=== PATIENT | female | born 1960 | race Caucasian/White ===

== ENCOUNTER 2018-02-05 14:30 | Outpatient (REF) | payer MEDICARE, MEDICAID, SELFPAY ==
--- NOTE | 2018-02-05 14:00 | PAPFT_PTH ---
PATIENT: STANLEY SENA LOC: [facility] U#:[id number] AGE/SX: 57/F ROOM: RE02/05/[address]: CHAOP Kim : 1960 BED: DIS: 02/05/2018 SPEC #: [id number] RECD: 02/05/18 18:27 STATUS: SANTIAGO REYusuf #: [id number] BRENNA: 02/05/18 14:[address]: Shasta Morales DEPT: [facility] Cytology RECD BY: Isa Recinos ENTERED: 02/05/18 18:27 SP TYPE: PAPFT JOSE DR: Merary Luna Tissues: 1 - CX/ENDOCX FOR PAP SMEARS Procedures: PAP THIN PREP/UVM Screening HPV DNA PROBE Comments: [id number]
== END 2018-02-05 14:50 ==
LOC: LBN 14:30
PROVIDERS: PCP Family Medicine; Visit Provider Nurse Practitioner Family
DX: Z12.4 Encounter for screening for malignant neoplasm of cervix (principal); Z11.51 Encounter for screening for human papillomavirus (HPV)
CPT/HCPCS: 88142; 87624

== ENCOUNTER 2018-11-22 15:57 | Outpatient (REF) | payer MEDICARE, MEDICAID, SELFPAY ==
[2018-11-22 21:27] LABS: FREE T4 0.49 ng/dL (0.76-1.46); TSH 0.47 uIU/mL (0.358-3.74)
[2018-11-23 16:34] LABS: T3,Free 5.1 pg/ml (2.8-5.3)
== END 2018-11-22 16:17 ==
LOC: NCHCN 15:57
PROVIDERS: PCP Family Medicine; Visit Provider Family Medicine
DX: E03.9 Hypothyroidism, unspecified (principal)
CPT/HCPCS: 84439; 84443; 84481

== ENCOUNTER 2018-12-05 15:20 | Outpatient (REF) | payer MEDICARE, MEDICAID, SELFPAY ==
[2018-12-05 22:13] LABS: Abs Immature Grans 0.01 k/cumm (0.0-0.09); Absolute Basophil Count 0.03 k/cumm (0.0-0.2); Absolute Eosinophil Count 0.07 k/cumm (0.0-0.7); Absolute Monocyte Count 0.64 k/cumm (0.11-0.7); Absolute Neutrophil Count 5.36 k/cumm (1.2-6.7); Basophils % 0.3; Eosinophils % 0.8; HCT 44.7 % (36.0-46.0); HGB 15.6 g/dL (12.0-15.5); Immature Grans % 0.1; Mean Corp. HGB Concentration 34.9 g/dL (32.0-36.0); Mean Corpuscular Hemoglobin 32.5 pg (27.0-33.0); Mean Corpuscular Volume 93.1 fL (80-95); Mean Platelet Volume 12.8 fL (8.0-11.0); Monocytes % 7.4; Neutrophils % 62.4; Platelet Count 177 x1000/uL (130-400); White Blood Cell Count 8.61 k/cumm (4.4-10.8)
[2018-12-05 22:24] LABS: ALT 37 U/L (12-78); AST 19 U/L (15-37); Albumin 4.2 g/dL (3.4-5.0); Alkaline Phosphatase 94 U/L (46-116); Anion Gap 9.9 mmol/L (3-11); BUN 19 mg/dL (7-18); Bilirubin, Total 0.6 mg/dL (0.2-1.0); CO2 26.1 mmol/L (21.0-32.0); Calcium 9.7 mg/dL (8.5-10.1); Chloride 102 mmol/L (98-107); Glucose 91 mg/dL (70-100); Potassium 3.9 mmol/L (3.5-5.1); Sodium 138 mmol/L (136-145); Total Protein 7.4 g/dL (6.4-8.2)
== END 2018-12-05 15:40 ==
LOC: NCHCN 15:20
PROVIDERS: PCP Family Medicine; Visit Provider Nurse Practitioner Family
DX: Z13.0 Encounter for screening for diseases of the blood and blood-forming organs and certain disorders involving the immune mechanism (principal); Z13.1 Encounter for screening for diabetes mellitus
CPT/HCPCS: 80053; 85025

== ENCOUNTER 2019-01-02 11:52 | Emergency (ER) | payer MEDICARE, MEDICAID, SELFPAY ==
[2019-01-02] VITALS (30 sets, daily range): BP systolic 103–166; BP diastolic 38–94; PULSE 59–85; RESP 16–24; TEMP 36.8; O2SAT 89–98
--- NOTE | 2019-01-02 12:11 | DI.RAD_ITS ---
SYMPTOMS/DIAGNOSIS: HEART RACING, CHEST HEAVINESS, ? ACUTE DISEASE PA AND LATERAL CHEST: The heart is normal in size. The lungs are clear. The mediastinal structures and pleura appear intact. CONCLUSION: Normal chest.
--- NOTE | 2019-01-02 12:15 | ED.GENADUL_ITS ---
Discharge Plan Disposition Patient Disposition: HOME Condition: Improving Discharge Details Chief Complaint: Chest Pain Clinical Impression: Fatigue, Dizziness, Palpitations, Diarrhea Primary Care Provider: Merary Luna ED Provider: Brooke Phelps Home Meds and New Rx's Prescriptions: Continued liothyronine 25 MCG tablet 25 mcg PO DAILY RF: 0 clonazepam 2 MG tablet,disintegrating 1 mg PO BID RF: 0 No Action Atorvastatin Calcium 20 MG tablet 20 mg PO DAILY RF: 0 anastrozole [Arimidex] 1 mg Tablet 1 mg PO DAILY RF: 0 nicotine 14 mg/24 hr Patch 24 Hour 1 patch TRANSDERMAL DAILY RF: 0 citalopram [Celexa] 40 mg Tablet 40 mg PO DAILY RF: 0 psyllium Packet 1 packet PO DAILY RF: 0 amitriptyline 50 mg Tablet 50 mg PO HS RF: 0 folic acid 1 mg Tablet 1 mg PO DAILY RF: 0 Vitamin D3 4,000 unit Capsule 4,000 unit PO DAILY RF: 0 Discharge Instructions Instructions: Palpitations (ED), Acute Diarrhea (ED), Dizziness (ED) Additional Instructions: Drink plenty of fluids and get plenty of rest. Return the Holter monitor to the hospital as directed. Call your primary care doctor tomorrow to schedule a follow-up appointment for reevaluation. Return immediately to the emergency department if you develop any worsening or new concerning symptoms. Discharge Data Discharge Date/Time-TO BE ENTERED AT DEPARTURE: 01/02/19 16:22 Discharge Physician: Brooke Phelps Medical Decision Making 58-year-old female with a history of anxiety, depression, breast and cervical cancer, irritable bowel syndrome, PTSD who presents with fatigue, sensation of tachycardia, intermittent chest heaviness, dizziness and shortness of breath over the past 10 days worse over the past few days and diarrhea for the past 3 days. Called her PCP and was advised to come to the ER for blood work and EKG. Normal heart rate at 68. She is afebrile. She appears nontoxic. O2 sat 93% on room air but she is a smoker. She appears anxious and tearful. No focal deficits on exam. Differential diagnosis includes ACS, PE, anxiety, dehydration, pneumonia, UTI, electrolyte abnormality. Will place an IV, bolus IV fluids, screening labs, chest x-ray and urinalysis and will give a dose of Ativan. 1430 --labs and imaging reviewed and unremarkable. Normal white blood cell count, negative d-dimer, negative troponin, negative lipase. Urinalysis notes 5-10 WBCs but negative bacteria, negative nitrite. Urine culture sent. Chest x-ray negative. Patient states she feels much better. Denies any acute symptoms at this time. Heart score 2. We will plan for repeat troponin and EKG. 1520 --Second troponin negative and repeat ekg unchanged. Pt denies any acute complaints and is requesting to go home. She was sent home with holter monitor. She was advised to follow-up with her primary care doctor for results of this. She was advised to return here with any worsening or new concerning symptoms. Medical Records Medical records reviewed: Yes I reviewed the patient's medical records. Imaging Data Radiologic Study: Radiologist's impression: PA AND LATERAL CHEST: The heart is normal in size. The lungs are clear. The mediastinal structures and pleura appear intact. CONCLUSION: Normal chest. Lab Data Lab results reviewed: Yes I reviewed the patient's lab results. Lab results narrative: 01/02/19 12:22 Urine - Reflex from Ua Urine Culture - Final Gram Positive Adia,Mixed Laboratory Tests Range/Units 01/02/19 01/02/19 01/02/19 12:15 12:15 12:15 WBC (4.4-10.8) k/cumm 8.82 RBC (4.00-5.20) m/cumm 5.10 Hgb (12.0-15.5) g/dL 16.5 H Hct (36.0-46.0) % 47.6 H MCV (80-95) fL 93.3 MCH (27.0-33.0) pg 32.4 MCHC (32.0-36.0) g/dL 34.7 RDW (11.7-14.6) % 12.2 Plt Count (130-400) x1000/uL 207 MPV (8.0-11.0) fL 11.4 H Immature Gran % 0.3 Neutrophils % 60.8 Lymphocytes % 31.0 Monocytes % 6.9 Eosinophils % 0.7 Basophils % 0.3 Absolute Neutrophils (1.2-6.7) k/cumm 5.36 Absolute Lymphocytes (1.2-3.4) k/cumm 2.73 Absolute Monocytes (0.11-0.7) k/cumm 0.61 Absolute Eosinophils (0.0-0.7) k/cumm 0.06 Absolute Basophils (0.0-0.2) k/cumm 0.03 D-Dimer (<500) ng/mlFEU Sodium (136-145) mmol/L 141 Potassium (3.5-5.1) mmol/L 3.9 Chloride (98-107) mmol/L 102 Carbon Dioxide (21.0-32.0) mmol/L 27.8 Anion Gap (3-11) mmol/L 11.2 H BUN (7-18) mg/dL 9 Creatinine (0.55-1.02) mg/dL 1.00 Estimated GFR/1.73 m2 (mL/min/1.73m2) 57.35 Glucose (70-100) mg/dL 100 Calcium (8.5-10.1) mg/dL 9.6 Magnesium (1.8-2.4) mg/dL 1.9 Total Bilirubin (0.2-1.0) mg/dL 0.5 AST (15-37) U/L 20 ALT (12-78) U/L 42 Alkaline Phosphatase (46-116) U/L 111 Troponin I (0.00-0.06) ng/mL < 0.05 Total Protein (6.4-8.2) g/dL 8.2 Albumin (3.4-5.0) g/dL 4.2 Lipase (73-393) U/L 163 Urine Color (Yellow) Urine Clarity (Clear) Urine pH (5-8) Ur Specific [place] (1.005-1.025) Urine Protein (Negative) mg/dL Urine Ketones (Negative) mg/dL Urine Blood (Negative) Urine Nitrite (Negative) Urine Bilirubin (Negative) Urine Urobilinogen (Up TO 0.2) EU/dL Ur Leukocyte Esterase (Negative) Urine RBC (0-2) Urine WBC (0-5) HPF Ur Epithelial Cells (Negative) HPF Urine Crystals (Negative) HPF Urine Bacteria (Negative) HPF Urine Casts (Negative) LPF Urine Mucus (Negative) Ur Culture Indicated? Urine Glucose (Negative) mg/dL Range/Units 01/02/19 01/02/19 01/02/19 12:15 12:22 14:58 WBC (4.4-10.8) k/cumm RBC (4.00-5.20) m/cumm Hgb (12.0-15.5) g/dL Hct (36.0-46.0) % MCV (80-95) fL MCH (27.0-33.0) pg MCHC (32.0-36.0) g/dL RDW (11.7-14.6) % Plt Count (130-400) x1000/uL MPV (8.0-11.0) fL Immature Gran % Neutrophils % Lymphocytes % Monocytes % Eosinophils % Basophils % Absolute Neutrophils (1.2-6.7) k/cumm Absolute Lymphocytes (1.2-3.4) k/cumm Absolute Monocytes (0.11-0.7) k/cumm Absolute Eosinophils (0.0-0.7) k/cumm Absolute Basophils (0.0-0.2) k/cumm D-Dimer (<500) ng/mlFEU 496 Sodium (136-145) mmol/L Potassium (3.5-5.1) mmol/L Chloride (98-107) mmol/L Carbon Dioxide (21.0-32.0) mmol/L Anion Gap (3-11) mmol/L BUN (7-18) mg/dL Creatinine (0.55-1.02) mg/dL Estimated GFR/1.73 m2 (mL/min/1.73m2) Glucose (70-100) mg/dL Calcium (8.5-10.1) mg/dL Magnesium (1.8-2.4) mg/dL Total Bilirubin (0.2-1.0) mg/dL AST (15-37) U/L ALT (12-78) U/L Alkaline Phosphatase (46-116) U/L Troponin I (0.00-0.06) ng/mL < 0.05 Total Protein (6.4-8.2) g/dL Albumin (3.4-5.0) g/dL Lipase (73-393) U/L Urine Color (Yellow) Yellow Urine Clarity (Clear) Clear Urine pH (5-8) 5.5 Ur Specific [place] (1.005-1.025) <= 1.005 Urine Protein (Negative) mg/dL Negative Urine Ketones (Negative) mg/dL Negative Urine Blood (Negative) Negative Urine Nitrite (Negative) Negative Urine Bilirubin (Negative) Negative Urine Urobilinogen (Up TO 0.2) EU/dL 0.2 Ur Leukocyte Esterase (Negative) Small H Urine RBC (0-2) 0-2 Urine WBC (0-5) HPF 5-10 Ur Epithelial Cells (Negative) HPF Rare Urine Crystals (Negative) HPF Negative Urine Bacteria (Negative) HPF Negative Urine Casts (Negative) LPF Negative Urine Mucus (Negative) Negative Ur Culture Indicated? Yes Urine Glucose (Negative) mg/dL Negative ECG Data Attestation: I personally reviewed and interpreted this ECG (s) as follows: Interpretation: #1 - rate of 63, sinus, no acute ST elevation or depression, [place] 140, QTc 403, QRS 88. #2 - rate of 65, sinus, no acute ST elevation or depression, [place] 156, QTc 418, QRS 88. HPI General Mode of arrival: ambulatory . Date/Time Provider Initiated Documentation: 01/02/19 11:54 . Limitations to Documentation: no limitations . Information obtained by: patient . HPI Narrative: Patient is a 58-year-old female with a history of anxiety, depression, IBS, PTSD, breast and cervical cancer who presents with fatigue, sensation of heart racing, intermittent chest heaviness, dizziness, shortness of breath for the past 10 days, and diarrhea over the past 3 days. She called her PCP office and was advised to come here for evaluation including EKG and blood work. She states her chest heaviness is currently 5/10. She denies any radiation. She states her diarrhea has been watery and brown. She also admits to decreased appetite. She denies known fever, nausea, vomiting, urinary symptoms, headache, recent antibiotics, recent travel, recent surgery, blurry vision or unilateral weakness or numbness. Related Data Home Medications Medication Instructions Recorded Confirmed Atorvastatin Calcium 20 mg PO DAILY tab-cap 03/03/17 01/02/19 clonazepam 1 mg PO BID tab-cap 03/03/17 01/02/19 liothyronine 25 mcg PO DAILY tab-cap 03/03/17 01/02/19 amitriptyline 50 mg PO HS 01/02/19 01/02/19 anastrozole [Arimidex] 1 mg PO DAILY 01/02/19 01/02/19 cholecalciferol (vitamin D3) 4,000 unit PO DAILY 01/02/19 01/02/19 [Vitamin D3] citalopram [Celexa] 40 mg PO DAILY 01/02/19 01/02/19 folic acid 1 mg PO DAILY 01/02/19 01/02/19 nicotine 1 patch TRANSDERMAL DAILY 01/02/19 01/02/19 psyllium 1 packet PO DAILY 01/02/19 01/02/19 Allergies Allergy/AdvReac Type Severity Reaction Status Date / Time latex Allergy Severe Verified 01/02/19 12:11 bupropion HCl AdvReac Intermediate Verified 01/02/19 12:11 [From Wellbutrin] buspirone HCl [From BuSpar] AdvReac Intermediate Verified 01/02/19 12:11 gabapentin [From Neurontin] AdvReac Intermediate Verified 01/02/19 12:11 paroxetine HCl [From Paxil] AdvReac Intermediate Verified 01/02/19 12:11 sertraline HCl [From Zoloft] AdvReac Intermediate Verified 01/02/19 12:11 venlafaxine HCl AdvReac Intermediate Verified 01/02/19 12:11 [From Effexor] General Stated Complaint: Chest Pain TRAVIS: 3 Review of Systems Review of Systems All systems reviewed & are unremarkable except as noted in HPI and below Constitutional Reports as per HPI, Denies chills, Reports fatigue, Denies fever(s), Reports poor appetite and Reports weakness Eyes Denies blurry vision ENT Denies dizziness, Denies sore throat and Denies throat swelling Cardiovascular Reports chest pain and Reports dyspnea Respiratory Denies cough and Reports dyspnea Gastrointestinal Denies abdominal pain, Reports diarrhea and Denies vomiting Genitourinary Denies hematuria and Denies dysuria Musculoskeletal Denies back pain and Denies numbness Integumentary/Breasts Denies lesions and Denies rash Neurologic Denies dizziness, Denies focal weakness, Denies numbness and Reports weakness Endocrine Reports fatigue Allergic/Immunologic Denies throat swelling [facility] Medical History Anxiety and depression (Acute 03/03/17) History of right breast cancer (Acute 03/03/17) Hyperlipidemia (Acute 03/03/17) Irritable bowel syndrome (Acute 03/03/17) Moderate dysplasia of cervix (LASHON II) (Acute 03/13/17) Primary insomnia (Acute 03/03/17) PTSD (post-traumatic stress disorder) (Acute 03/03/17) Surgical History History of lumpectomy of right breast (Acute) Family History Maternal Aunt Breast cancer Sister Breast cancer Father CAD (coronary artery disease) Diabetes Mother Arthritis Social History Smoking/Tobacco Use Status: Current every day Tobacco Type: cigarettes Alcohol Intake: current Alcohol Intake frequency: a few times a month Drug use: Never Substance use type: does not use Details: Hemp oil without THC daily Seatbelt use: always Do you feel safe at home: Yes Do you feel safe in your relationship?: Yes Exam Const General: cooperative, healthy appearing, no acute distress and anxious HENMT Head: normal to inspection Face and sinus: normal facial exam Eyes General: appearance normal, both eyes and all related structures Pupils: PERRL EOM: EOM intact bilaterally Neck Neck: normal visual inspection and No submandibular swelling Lymphatic: no lymphadenopathy noted Chest Chest: normal inspection of the chest and no tenderness Resp Effort & Inspection: normal respiratory effort and able to speak in complete sentences Auscultation: clear to auscultation bilaterally Cardio Rate: regular rate Rhythm: regular rhythm GI Inspection: normal to inspection Palpation: soft, not firm, not rigid and nontender Auscultation: normal bowel sounds Skin General skin exam: no rashes or lesions noted Neuro General: alert, awake, oriented x3, gait normal, moves all extremities, no meningeal signs and no focal motor deficits Cognition: normal cognition Speech: speech normal Motor: muscle tone normal throughout and strength 5/5 throughout Sensory Exam: no sensory deficits noted Extrem General: normal to inspection, full ROM, normal capillary refill, no calf tenderness bilaterally and no edema Psych Appearance: grossly normal Mental Status: mental status grossly normal Speech and Movement: speech and movement normal Affect: normal affect Course Vital Signs Temperature 98.2 F 01/02/19 11:57 Pulse 68 01/02/19 11:57 Respiratory Rate 18 01/02/19 11:57 Blood Pressure 166/94 H 01/02/19 11:57 Pulse Oximetry 93 L 01/02/19 11:57 Temperature 98.2 F 01/02/19 11:57 Temperature Source Skin 01/02/19 11:57 Pulse 68 01/02/19 11:57 Respiratory Rate 18 01/02/19 11:57 Respiratory Effort Non-Labored 01/02/19 12:03 Respiratory Depth Normal 01/02/19 12:03 Blood Pressure 166/94 H 01/02/19 11:57 Blood Pressure Position Supine 01/02/19 11:57 Pulse Oximetry 93 L 01/02/19 11:57 Oxygen Delivery Method Room Air 01/02/19 11:57 Oxygen Flow Rate 0 01/02/19 11:57 Pain Level 5 01/02/19 11:57
[2019-01-02 12:24] LABS: Abs Immature Grans 0.03 k/cumm (0.0-0.09); Absolute Basophil Count 0.03 k/cumm (0.0-0.2); Absolute Eosinophil Count 0.06 k/cumm (0.0-0.7); Absolute Lymphocyte Count 2.73 k/cumm (1.2-3.4); Absolute Monocyte Count 0.61 k/cumm (0.11-0.7); Absolute Neutrophil Count 5.36 k/cumm (1.2-6.7); Basophils % 0.3; Eosinophils % 0.7; HCT 47.6 % (36.0-46.0); HGB 16.5 g/dL (12.0-15.5); Immature Grans % 0.3; Mean Corp. HGB Concentration 34.7 g/dL (32.0-36.0); Mean Corpuscular Hemoglobin 32.4 pg (27.0-33.0); Mean Corpuscular Volume 93.3 fL (80-95); Mean Platelet Volume 11.4 fL (8.0-11.0); Monocytes % 6.9; Neutrophils % 60.8; Platelet Count 207 x1000/uL (130-400); RBC Distribution Width 12.2 % (11.7-14.6); White Blood Cell Count 8.82 k/cumm (4.4-10.8)
[2019-01-02 12:27] LABS: Bilirubin Negative (Negative); Blood Negative (Negative); Clarity Clear (Clear); Glucose Negative (Negative); Ketones Negative (Negative); Leukocyte Esterase Small (Negative); Nitrite Negative (Negative); Specific Gravity <= 1.005 (1.005-1.025); Urobilinogen 0.2 EU/dL (Up TO 0.2); pH 5.5 (5-8)
[2019-01-02] MEDS: Normal Saline 1,000 ML 1000 ML IV (12:32)
[2019-01-02] MEDS: LORazepam 2 MG/ML VIAL 0.5 MG IVP (12:32)
[2019-01-02 12:34] LABS: Bacteria Negative HPF (Negative); C & S Indicated? Yes; Casts Negative LPF (Negative); Crystals Negative HPF (Negative); Epithelial Cells Rare HPF (Negative); Mucus Negative (Negative); RBC 0-2 (0-2)
[2019-01-02 12:37] LABS: Lipase 163 U/L (73-393)
[2019-01-02 12:43] LABS: ALT 42 U/L (12-78); AST 20 U/L (15-37); Albumin 4.2 g/dL (3.4-5.0); Alkaline Phosphatase 111 U/L (46-116); Anion Gap 11.2 mmol/L (3-11); BUN 9 mg/dL (7-18); Bilirubin, Total 0.5 mg/dL (0.2-1.0); CO2 27.8 mmol/L (21.0-32.0); Calcium 9.6 mg/dL (8.5-10.1); Chloride 102 mmol/L (98-107); Estimated GFR 57.35 (mL/min/1.73m2); Glucose 100 mg/dL (70-100); Magnesium 1.9 mg/dL (1.8-2.4); Potassium 3.9 mmol/L (3.5-5.1); Sodium 141 mmol/L (136-145); Total Protein 8.2 g/dL (6.4-8.2); Troponin I < 0.05 ng/mL (0.00-0.06)
[2019-01-02 12:59] LABS: D-Dimer 496 ng/mlFEU (<500)
[2019-01-02 15:23] LABS: Troponin I < 0.05 ng/mL (0.00-0.06)
== END 2019-01-02 16:22 | disposition home or self-care (01) ==
PROVIDERS: Emergency Provider Physician Assistant; PCP Family Medicine
DX: R00.2 Palpitations (principal); R53.83 Other fatigue; R42 Dizziness and giddiness; R19.7 Diarrhea, unspecified; F41.8 Other specified anxiety disorders
CPT/HCPCS: 36415; 80053; 83690; 93005; 96361; 96374; 99285; 71046; 81003; 81015; 83735; 84484; 85025; 85379; 87086; 93010; 93225; J2060

== ENCOUNTER 2019-01-04 11:10 | Outpatient (CLI) | payer MEDICARE, MEDICAID, SELFPAY ==
--- NOTE | 2019-01-07 11:17 | HOLTER_ITS ---
HOLTER MONITOR DATE OF DICTATION January 07, [address] 1 days, 16 hours. Baseline rhythm sinus. Rare single PAC. No SVT or atrial fibrillation. Frequent single PVC, 1163 total, 0.7% total beat. 7 couplet. No VT. Nocturnal heart rates as low as 50 Beats per minute, sinus bradycardia. SYMPTOMS: Heart racing noted once during sinus rhythm, single PAC 84 beats per minute. Average heart 68 beats per minute, range 50-121 beats per minute. Tai Leija M.D. RACHID/josé luis T - 01/07/19
== END 2019-01-04 11:30 ==
PROVIDERS: PCP Family Medicine; Visit Provider Family Medicine
DX: I49.3 Ventricular premature depolarization (principal); R00.1 Bradycardia, unspecified
CPT/HCPCS: 93226

== ENCOUNTER 2019-01-07 10:06 | Outpatient (CLI) | payer MEDICARE, MEDICAID, SELFPAY | END 2019-01-07 10:26 | PROVIDERS: PCP Family Medicine; Referring Provider Physician Assistant; Visit Provider Internal Medicine Interventional Cardiology | DX: I49.3 Ventricular premature depolarization (principal); R00.1 Bradycardia, unspecified | CPT/HCPCS: 93227 ==

== ENCOUNTER 2019-02-02 12:52 | Emergency (ER) | payer MEDICARE, MEDICAID, SELFPAY ==
[2019-02-02 12:55] VITALS: BP 124/81; PULSE 78; RESP 18; TEMP 37.3; O2SAT 98
[2019-02-02 13:14] VITALS: RESP 16
--- NOTE | 2019-02-02 13:21 | NUR.NOTE ---
pt states that her three doctors do not aggree on which meds she should be on . she denies suicidal or homocidal thoughts. Nursing Note:
--- NOTE | 2019-02-02 13:30 | ED.GENADUL_ITS ---
Discharge Plan Disposition Patient Disposition: HOME Condition: Improving Discharge Details Chief Complaint: GenMedical Clinical Impression: Anxiety, Restlessness Primary Care Provider: Merary Luna ED Provider: Brooke Phelps Home Meds and New Rx's Prescriptions: Continued Atorvastatin Calcium 20 MG tablet 20 mg PO DAILY RF: 0 liothyronine 25 MCG tablet 25 mcg PO DAILY RF: 0 clonazepam 2 MG tablet,disintegrating 0.5 mg PO BID RF: 0 anastrozole [Arimidex] 1 mg Tablet 1 mg PO DAILY RF: 0 nicotine 14 mg/24 hr Patch 24 Hour 1 patch TRANSDERMAL DAILY RF: 0 citalopram [Celexa] 40 mg Tablet 40 mg PO DAILY RF: 0 psyllium Packet 1 packet PO DAILY RF: 0 amitriptyline 50 mg Tablet 150 mg PO HS RF: 0 folic acid 1 mg Tablet 1 mg PO DAILY RF: 0 Vitamin D3 4,000 unit Capsule 4,000 unit PO DAILY RF: 0 clonidine HCl 0.1 mg Tablet 0.1 mg PO TID RF: 0 Discharge Instructions Instructions: Anxiety (ED) Additional Instructions: Continue taking your clonidine as needed and directed. You can also add Benadryl to help with feelings of restlessness and difficulty with sleep. Follow-up with your scheduled appointment with your primary care doctor on Monday. Return to the emergency department if you develop any worsening or new concerning symptoms. Discharge Data Discharge Date/Time-TO BE ENTERED AT DEPARTURE: 02/02/19 16:21 Discharge Physician: Brooke Phelps Medical Decision Making 3229 -- 58-year-old female with history of anxiety and depression, PTSD who pre sents with feelings of anxiety, restlessness and insomnia over the past month after weaning down off of her clonazepam which she has taken for several years. She denies any relief with clonidine. Vitals within normal limits. She appears very anxious and tearful but otherwise nontoxic. No focal deficits. EKG notes a rate of 68, sinus with no acute ST-T wave ischemic changes. Do not see an indication for imaging at this time. Will check screening labs. 1610 -- Labs reviewed and unremarkable. Troponin negative. TSH within normal limits. There was an interaction with hydroxyzine and Celexa so patient was given a dose of Benadryl and she admitted to improvement in her symptoms. She has an appointment with her primary care doctor on Monday. She is requesting to go home at this time. She is advised to discuss with her primary care doctor and psychiatrist regarding a specific plan with her medications. She is advised to return here with any worsening or new concerning symptoms. Medical Records Medical records reviewed: Yes I reviewed the patient's medical records. Lab Data Lab results reviewed: Yes I reviewed the patient's lab results. Labs: Laboratory Tests Range/Units 02/02/19 02/02/19 02/02/19 14:10 14:10 14:10 WBC (4.4-10.8) k/cumm 7.71 RBC (4.00-5.20) m/cumm 4.60 Hgb (12.0-15.5) g/dL 14.8 Hct (36.0-46.0) % 42.7 MCV (80-95) fL 92.8 MCH (27.0-33.0) pg 32.2 MCHC (32.0-36.0) g/dL 34.7 RDW (11.7-14.6) % 12.1 Plt Count (130-400) x1000/uL 201 MPV (8.0-11.0) fL 10.7 Immature Gran % 0.1 Neutrophils % 57.1 Lymphocytes % 33.9 Monocytes % 6.9 Eosinophils % 1.6 Basophils % 0.4 Absolute Neutrophils (1.2-6.7) k/cumm 4.41 Absolute Lymphocytes (1.2-3.4) k/cumm 2.61 Absolute Monocytes (0.11-0.7) k/cumm 0.53 Absolute Eosinophils (0.0-0.7) k/cumm 0.12 Absolute Basophils (0.0-0.2) k/cumm 0.03 Sodium (136-145) mmol/L 139 Potassium (3.5-5.1) mmol/L 3.9 Chloride (98-107) mmol/L 104 Carbon Dioxide (21.0-32.0) mmol/L 25.8 Anion Gap (3-11) mmol/L 9.2 BUN (7-18) mg/dL 10 Creatinine (0.55-1.02) mg/dL 0.87 Estimated GFR/1.73 m2 (mL/min/1.73m2) >= 60.00 Glucose (70-100) mg/dL 86 Calcium (8.5-10.1) mg/dL 9.3 Magnesium (1.8-2.4) mg/dL 2.1 Total Bilirubin (0.2-1.0) mg/dL 0.4 AST (15-37) U/L 23 ALT (14-59) U/L 42 Alkaline Phosphatase (46-116) U/L 97 Troponin I (0.00-0.06) ng/mL < 0.05 Total Protein (6.4-8.2) g/dL 7.3 Albumin (3.4-5.0) g/dL 3.8 TSH (0.36-3.74) uIU/mL 0.87 ECG Data Attestation: I personally reviewed and interpreted this ECG (s) as follows: Interpretation: Rate of 68, sinus, no acute ST elevation or depression. SD 134. QTc 410. QRS 88. HPI General Mode of arrival: ambulatory . Date/Time Provider Initiated Documentation: 02/02/19 13:01 . Limitations to Documentation: no limitations . Information obtained by: patient . HPI Narrative: It is a 58-year-old female with a history of anxiety, depression, PTSD and breast cancer who presents with headache, anxiety and feeling restless for the past month. She states she is recently started weaning off of her clonazepam per the recommendation of her psychiatrist. She states she had been taking 2 mg 3 times daily but has now been decreased to 0.5 mg in the morning and 2 mg at night. She states her primary care doctor started her on clonidine to help with her withdrawal symptoms but states this makes her feel dizzy. She states she had been taking it 3 times a day but per the direction of her psychiatrist is now only taking at night starting yesterday. She states she has been unable to sleep for several months. She states she had been on trazodone and Thorazine previously to help with her anxiety and sleep. She denies fever, cough, chest pain, shortness of breath, leg pain or swelling. She states her headache is on the top of her head and feels like pressure and is currently 6/10. She states she feels like her main concern is her anxiety and insomnia. She does admit to alternating constipation and diarrhea. She denies any blurry vision, dizziness, vomiting, or unilateral numbness or weakness. Related Data Home Medications Medication Instructions Recorded Confirmed Atorvastatin Calcium 20 mg PO DAILY tab-cap 03/03/17 02/02/19 clonazepam 0.5 mg PO BID tab-cap 03/03/17 02/02/19 liothyronine 25 mcg PO DAILY tab-cap 03/03/17 02/02/19 Vitamin D3 4,000 unit PO DAILY 01/02/19 02/02/19 amitriptyline 150 mg PO HS 01/02/19 02/02/19 anastrozole [Arimidex] 1 mg PO DAILY 01/02/19 02/02/19 citalopram [Celexa] 40 mg PO DAILY 01/02/19 02/02/19 folic acid 1 mg PO DAILY 01/02/19 02/02/19 nicotine 1 patch TRANSDERMAL DAILY 01/02/19 02/02/19 psyllium 1 packet PO DAILY 01/02/19 02/02/19 clonidine HCl 0.1 mg PO TID 02/02/19 02/02/19 Allergies Allergy/AdvReac Type Severity Reaction Status Date / Time latex Allergy Severe Verified 02/02/19 13:04 bupropion HCl AdvReac Intermediate Verified 02/02/19 13:04 [From Wellbutrin] buspirone HCl [From BuSpar] AdvReac Intermediate Verified 02/02/19 13:04 gabapentin [From Neurontin] AdvReac Intermediate Verified 02/02/19 13:04 paroxetine HCl [From Paxil] AdvReac Intermediate Verified 02/02/19 13:04 sertraline HCl [From Zoloft] AdvReac Intermediate Verified 02/02/19 13:04 venlafaxine HCl AdvReac Intermediate Verified 02/02/19 13:04 [From Effexor] General Stated Complaint: GenMedical TRAVIS: 3 Review of Systems Review of Systems ROS Unobtainable: All systems reviewed & are unremarkable except as noted in HPI and below Constitutional Constitutional: Reports as per HPI, Denies chills, Reports difficulty sleeping and Denies fever(s) Eyes Eyes: Denies blurry vision ENT Ears, Nose, Mouth, and Throat: Denies dizziness, Denies sore throat and Denies throat swelling Cardiovascular Cardiovascular: Denies chest pain and Denies dyspnea Respiratory Respiratory: Denies cough and Denies dyspnea Gastrointestinal Gastrointestinal: Denies abdominal pain, Denies diarrhea and Denies vomiting Genitourinary Genitourinary: Denies hematuria and Denies dysuria Musculoskeletal Musculoskeletal: Denies back pain and Denies numbness Integumentary/Breasts Skin/Breast: Denies lesions and Denies rash Neurologic Neurologic: Denies dizziness, Denies focal weakness and Denies numbness Psychiatric Psychiatric: Reports anxiety Comments: restlessness Allergic/Immunologic Allergic/Immunologic: Denies throat swelling [facility] Medical History Anxiety and depression (Acute 03/03/17) History of right breast cancer (Acute 03/03/17) Hyperlipidemia (Acute 03/03/17) Irritable bowel syndrome (Acute 03/03/17) Moderate dysplasia of cervix (LASHON II) (Acute 03/13/17) negative ECC; 12oclock ectocervical bx returned CIN2 LEEP: acute and chronic cervicitis, no HPV dz Primary insomnia (Acute 03/03/17) PTSD (post-traumatic stress disorder) (Acute 03/03/17) Social History Smoking/Tobacco Use Status: Current every day Tobacco Type: cigarettes Alcohol Intake: current Alcohol Intake frequency: a few times a month Drug use: Never Substance use type: does not use Details: Hemp oil without THC daily Seatbelt use: always Do you feel safe at home: Yes Do you feel safe in your relationship?: Yes Exam Const General: cooperative, healthy appearing and no acute distress HENMT Head: normal to inspection Face and sinus: normal facial exam Eyes General: appearance normal, both eyes and all related structures Pupils: PERRL EOM: EOM intact bilaterally Neck Neck: normal visual inspection and No submandibular swelling Lymphatic: no lymphadenopathy noted Chest Chest: normal inspection of the chest and no tenderness Resp Effort & Inspection: normal respiratory effort and able to speak in complete sentences Auscultation: clear to auscultation bilaterally Cardio Rate: regular rate Rhythm: regular rhythm GI Inspection: normal to inspection Palpation: soft, not firm, not rigid and nontender Auscultation: normal bowel sounds Back/Spine/Pelvis Thoracic/Lumbar Spine: thoracic and lumbar spine normal to inspection Skin General skin exam: no rashes or lesions noted Neuro General: alert, awake and oriented x3 Cranial Nerves: CN's II-XI intact bilaterally Cognition: normal cognition Speech: speech normal Motor: muscle tone normal throughout and strength 5/5 throughout Sensory Exam: no sensory deficits noted Extrem General: normal to inspection, full ROM, normal capillary refill, no calf tenderness bilaterally and no edema Psych Appearance: grossly normal Mental Status: mental status grossly normal Speech and Movement: speech and movement normal Affect: normal affect Course Vital Signs Vital signs: Vital Signs Temperature 99.1 F 02/02/19 12:55 Pulse 78 02/02/19 12:55 Respiratory Rate 18 02/02/19 12:55 Blood Pressure 124/81 02/02/19 12:55 Pulse Oximetry 98 02/02/19 12:55 Temperature 99.1 F 02/02/19 12:55 Temperature Source Temporal Artery Scan 02/02/19 12:55 Pulse 78 02/02/19 12:55 Respiratory Rate 16 02/02/19 13:14 Respiratory Effort 02/02/19 13:14 Respiratory Depth Normal 02/02/19 13:14 Respiratory Pattern Normal 02/02/19 13:14 Blood Pressure 124/81 02/02/19 12:55 Blood Pressure Position Sitting 02/02/19 12:55 Pulse Oximetry 98 02/02/19 12:55 Oxygen Delivery Method Room Air 02/02/19 12:55 Oxygen Flow Rate 0 02/02/19 12:55 Pain Level 6 02/02/19 12:55
[2019-02-02 14:24] LABS: Abs Immature Grans 0.01 k/cumm (0.0-0.09); Absolute Basophil Count 0.03 k/cumm (0.0-0.2); Absolute Eosinophil Count 0.12 k/cumm (0.0-0.7); Absolute Lymphocyte Count 2.61 k/cumm (1.2-3.4); Absolute Monocyte Count 0.53 k/cumm (0.11-0.7); Absolute Neutrophil Count 4.41 k/cumm (1.2-6.7); Basophils % 0.4; Eosinophils % 1.6; HCT 42.7 % (36.0-46.0); HGB 14.8 g/dL (12.0-15.5); Immature Grans % 0.1; Lymphocytes % 33.9; Mean Corp. HGB Concentration 34.7 g/dL (32.0-36.0); Mean Corpuscular Hemoglobin 32.2 pg (27.0-33.0); Mean Corpuscular Volume 92.8 fL (80-95); Mean Platelet Volume 10.7 fL (8.0-11.0); Monocytes % 6.9; Neutrophils % 57.1; Platelet Count 201 x1000/uL (130-400); RBC Distribution Width 12.1 % (11.7-14.6); White Blood Cell Count 7.71 k/cumm (4.4-10.8)
[2019-02-02 14:42] VITALS: BP 104/69; PULSE 62; O2SAT 95
[2019-02-02 14:42] LABS: ALT 42 U/L (14-59); AST 23 U/L (15-37); Albumin 3.8 g/dL (3.4-5.0); Alkaline Phosphatase 97 U/L (46-116); Anion Gap 9.2 mmol/L (3-11); BUN 10 mg/dL (7-18); Bilirubin, Total 0.4 mg/dL (0.2-1.0); CO2 25.8 mmol/L (21.0-32.0); CREATININE 0.87 mg/dL (0.55-1.02); Calcium 9.3 mg/dL (8.5-10.1); Chloride 104 mmol/L (98-107); Glucose 86 mg/dL (70-100); Magnesium 2.1 mg/dL (1.8-2.4); Potassium 3.9 mmol/L (3.5-5.1); Sodium 139 mmol/L (136-145); Total Protein 7.3 g/dL (6.4-8.2); Troponin I < 0.05 ng/mL (0.00-0.06)
[2019-02-02] MEDS: diphenhydrAMINE 25 MG CAP PO (14:48)
[2019-02-02 14:50] VITALS: BP 104/69; PULSE 64; RESP 16; TEMP 37; O2SAT 97
[2019-02-02 16:21] LABS: TSH (W/Ref FT4) 0.87 uIU/mL (0.36-3.74)
[2019-02-02 16:22] VITALS: BP 104/69; PULSE 64; RESP 16; TEMP 37; O2SAT 97
== END 2019-02-02 16:21 | disposition home or self-care (01) ==
PROVIDERS: Emergency Provider Physician Assistant; PCP Family Medicine
DX: F41.8 Other specified anxiety disorders (principal); R45.1 Restlessness and agitation; F43.10 Post-traumatic stress disorder, unspecified; F51.01 Primary insomnia
CPT/HCPCS: 36415; 80053; 93005; 99284; 83735; 84443; 84484; 85025; 93010

== ENCOUNTER 2019-02-07 15:15 | Outpatient (REF) | payer MEDICARE, MEDICAID, SELFPAY ==
--- NOTE | 2019-02-07 15:00 | PAPFT_PTH ---
PATIENT: STANLEY SENA LOC: [facility] U#:[id number] AGE/SX: 58/F ROOM: RE02/07/[address]: CHAPO Kim : 1960 BED: DIS: 02/07/2019 SPEC #: [id number] RECD: 02/07/19 18:16 STATUS: SANTIAGO REQ #: [id number] BRENNA: 02/07/19 15:[address]: Shasta Morales DEPT: [facility] Cytology RECD BY: Isa Recinos ENTERED: 02/07/19 18:17 SP TYPE: PAPFT OTHR DR: Merary Luna Tissues: 1 - CX/ENDOCX FOR PAP SMEARS Procedures: PAP THIN PREP/UVM Screening HPV DNA PROBE Comments: [id number]
== END 2019-02-07 15:35 ==
LOC: LBN 15:15
PROVIDERS: PCP Family Medicine; Visit Provider Nurse Practitioner Family
DX: Z12.4 Encounter for screening for malignant neoplasm of cervix (principal)
CPT/HCPCS: 88142; 87624

== ENCOUNTER 2019-02-22 14:20 | Outpatient (REF) | payer MEDICARE, MEDICAID, SELFPAY ==
--- NOTE | 2019-02-22 14:05 | ENDO_PTH ---
PATIENT: STANLEY SENA LOC: [facility] U#:[id number] AGE/SX: 58/F ROOM: RE02/22/[address]: Randell Marmolejo MD : 1960 BED: DIS: 02/22/2019 SPEC #: [id number] RECD: 02/22/19 17:31 STATUS: SANTIAGO REQ #: [id number] BRENNA: 02/22/19 14:[address]: Randell Marmolejo DEPT: Surgical Specimen RECD BY: Isa Recinos ENTERED: 02/22/19 17:32 SP TYPE: Endo OTHR DR: Merary Luna Tissues: 1 - ENDOCERVICAL BX/CURRETTE Procedures: GROSS AND MICRO LEVEL 4 Comments: [id number] (TISSUE DID NOT SURVIVE PROCESSING - CREDITED)
== END 2019-02-22 14:40 ==
LOC: LBN 14:20
PROVIDERS: PCP Family Medicine; Visit Provider Obstetrics & Gynecology
DX: R87.610 Atypical squamous cells of undetermined significance on cytologic smear of cervix (ASC-US) (principal); Z87.410 Personal history of cervical dysplasia
CPT/HCPCS: 88305

== ENCOUNTER 2019-10-23 15:28 | Outpatient (REF) | payer OTHER, MEDICAID, SELFPAY ==
[2019-10-24 10:55] LABS: COVID-19 RT-PCR UVMMC Result Negative (Negative)
== END 2019-10-23 15:48 ==
LOC: NCHCN 15:28
PROVIDERS: PCP Family Medicine; Visit Provider Nurse Practitioner Family
DX: R05 Cough (principal)
CPT/HCPCS: U0003